=== PATIENT | female | born 1960 | race Two or more races ===

== ENCOUNTER 2025-03-16 10:30 | Emergency (ER) | payer OTHER ==
[~2025-03-16] VITALS: Ht 160 cm; Wt 78.0 kg
[2025-03-16] MEDS ORDERED: AVAPRO150 MG PO (10:46)
[2025-03-16] MEDS ORDERED: PLAVIX75 MG PO (10:46)
[2025-03-16] MEDS ORDERED: TENORMIN50 M1 PO (10:46)
[2025-03-16 10:48] VITALS: BP 140/80; O2SAT 100
[2025-03-16] MEDS ORDERED: LIPITOR40 M1 PO (10:50)
[2025-03-16] MEDS ORDERED: IRBESARTAN75 MG PO (10:50)
[2025-03-16 11:55] LABS: BASO % 0.4 % (0.1-1.2); EOS # 0.10 (0.04-0.54); EOS % 2.0 % (0.7-7.0); LYMPH # 1.89 (1.18-3.74); LYMPH % 38.3 % (19.3-53.1); MEAN PLATELET VOLUME 9.80 fl (9.4-12.4); MONO # 0.39 (0.24-0.82); MONO % 7.9 % (4.7-12.5); NEUT # 2.52 (1.56-6.13); NEUT % 51.2 % (34.0-71.1); RED CELL DISTRIBUTION WIDTH 12.3 % (11.6-14.4)
[2025-03-16 12:22] LABS: BUN CREA RATIO 20.0 (7.0-25.0); CREATININE SERUM 0.6 mg/dL (0.55-1.02); GFR 100.97; GLUCOSE FASTING 93.0 mg/dL (65-100); OSMOLALITY SERUM 286.0 MOSM/KG (275-295)
== END 2025-03-16 14:13 | disposition home or self-care (01) ==
LOC: ER 10:54
PROVIDERS: Emergency Medicine
DX: R51.9 Headache, unspecified (principal); I10 Essential (primary) hypertension